=== PATIENT | female | born 1975 | race Caucasian/White ===

== ENCOUNTER 2023-08-30 18:03 | Outpatient (CLI) | payer OTHER, SELFPAY ==
--- NOTE | 2023-08-30 18:20 | MM_ITS ---
BILATERAL 3D TOMOSYNTHESIS SCREENING MAMMOGRAPHY WITH COMPUTER ASSISTED DETECTION. INDICATION: SCREENING MAMMOGRAPHY. TECHNIQUE: 3D ML/MLO BILATERAL MAMMOGRAM IMAGES SUBMITTED. COMPARISON: 08/25/2022, 08/20/2020, 08/15/2019 FINDINGS: BREAST DENSITY IS HETEROGENEOUSLY DENSE. NO SUSPICIOUS MASSES OR ARCHITECTURAL DISTORTION. NO ADENOPATHY. A FEW SCATTERED BENIGN PUNCTATE CALCIFICATIONS ARE PRESENT. IMPRESSION: NO EVIDENCE OF MALIGNANCY. RECOMMENDATIONS: ANNUAL BILATERAL SCREENING MAMMOGRAPHY. BI-RADS CATEGORY 2. BENIGN.
== END 2023-08-30 18:04 | disposition home or self-care (01) ==
LOC: MAMMO 18:03
PROVIDERS: PCP Physician Assistant; Visit Provider Physician Assistant
DX: Z12.31 Encounter for screening mammogram for malignant neoplasm of breast (principal); R92.2 Inconclusive mammogram
CPT/HCPCS: 77063; 77067

== ENCOUNTER 2024-07-27 08:14 | Outpatient (CLI) | payer OTHER, SELFPAY | END 2024-07-27 08:15 | disposition home or self-care (01) | PROVIDERS: PCP Registered Nurse; Visit Provider Registered Nurse | DX: R63.4 Abnormal weight loss (principal) | CPT/HCPCS: 80053; 82397; 83970; 84100; 84443; 86140; 86618; 86803; 87468; 87469; 87484; 87798 ==

== ENCOUNTER 2024-08-03 07:53 | Outpatient (CLI) | payer OTHER, SELFPAY | END 2024-08-03 07:54 | disposition home or self-care (01) | LOC: NFLDREF 08-12 15:34 | PROVIDERS: PCP Registered Nurse; Referring Provider Registered Nurse; Visit Provider Registered Nurse | DX: R63.4 Abnormal weight loss (principal) | CPT/HCPCS: 87177; 87209 ==

== ENCOUNTER 2024-08-24 12:26 | Outpatient (CLI) | payer OTHER, SELFPAY | END 2024-08-24 12:27 | disposition home or self-care (01) | LOC: CT 12:27 | PROVIDERS: PCP Registered Nurse; Visit Provider Registered Nurse | DX: R63.4 Abnormal weight loss (principal) | CPT/HCPCS: 71260; 74177; Q9967 ==

== ENCOUNTER 2024-09-04 17:21 | Outpatient (CLI) | payer OTHER, SELFPAY ==
--- NOTE | 2024-09-04 18:20 | CRLHL7_ITS ---
For Patients: As a result of the Century Cures Act, medical imaging exams and procedure reports are released immediately into your electronic medical record. You may view this report before your referring provider. If you have questions, please contact your health care provider. BILATERAL SCREENING MAMMOGRAM WITH COMPUTER-AIDED DETECTION AND TOMOSYNTHESIS TECHNIQUE: CC and MLO views were obtained. These mammographic images have been obtained using full-field digital technique. These mammographic images were interpreted with the benefit of computer-aided detection. Breast Tomosynthesis was used in this interpretation. COMPARISON FILM: 08/30/23, 08/25/22, 08/20/20. FINDINGS: The breasts are extremely dense, which lowers the sensitivity of mammography IMPRESSION: There is no radiographic evidence for malignancy. ASSESSMENT: BI-RADS Category 1: Negative RECOMMENDATION: Routine screening mammogram in 1 year. A lay language report of this examination will be provided to the patient. Tarik Lambert M.D. Diagnostic Radiologist [email or web address] ROSALINE/nella Transcribed: 2:14 p.ellis carmen/Dictated by: Tarik Lambert MD @ 09/07/2024 9:52:00 AM (Electronically Signed)
== END 2024-09-04 17:22 | disposition home or self-care (01) ==
LOC: MAMMO 17:22
PROVIDERS: PCP Registered Nurse; Visit Provider Physician Assistant
DX: Z12.31 Encounter for screening mammogram for malignant neoplasm of breast (principal); R92.343 Mammographic extreme density, bilateral breasts
CPT/HCPCS: 77063; 77067